=== PATIENT | female | born 1980 | race Caucasian/White ===

== ENCOUNTER 2017-11-30 22:07 | Emergency (ER) | payer BC ==
--- OUTSIDE RECORDS SUMMARY | 2017-11-30 22:09 | XMS REPORT | Continuity of Care Document ---
:1980 Author Organization Interface Problems Problem Status Onset Classification Date Comments Source Date Reported Acute upper 07/16/19 Diagnosis 07/15/2016 [facility] respiratory 17 infection Tobacco use 07/16/19 Diagnosis 07/15/2016 [facility] cessation 17 education Medications Medication Details Route Status Patient Ordering Order Source Instructions Provider Date Acetaminophen 300 acetaminophen Active [facility] MG / Codeine 300 mg-codeine Phosphate 30 MG 30 mg tablet Oral Tablet TAKE 1 TABLET BY MOUTH EVERY 6 HOURS NEEDED FOR PAIN 200 ACTUAT albuterol Active [facility] Albuterol 0.09 sulfate HFA 90 MG/ACTUAT Metered mcg/actuation Dose Inhaler aerosol inhaler Inhale 2 puffs every 4 hours by inhalation route. Amoxicillin 500 MG amoxicillin 500 Active [facility] Oral Capsule mg capsule TAKE 1 CAPSULE BY MOUTH 3 TIMES A DAY Azithromycin 250 azithromycin Active [facility] MG Oral Tablet 250 mg tablet TAKE 2 TABLETS (500 MG) BY ORAL ROUTE ONCE DAILY FOR 1 DAY THEN 1 TABLET (250 MG) BY ORAL ROUTE ONCE DAILY FOR 4 DAYS Ibuprofen 600 MG ibuprofen 600 Active [facility] Oral Tablet mg tablet TAKE 1 TABLET BY MOUTH EVERY 6 HOURS NEEDED FOR PAIN Dextromethorphan promethazine-DM Active [facility] Hydrobromide 3 6.25 mg-15 mg/5 MG/ML / mL syrup Take 5 Promethazine mL every 6 Hydrochloride 1.25 hours by oral MG/ML Oral route for 7 Solution days. tramadol tramadol 50 mg Active [facility] hydrochloride 50 tablet TAKE ONE MG Oral Tablet TABLET BY MOUTH EVERY SIX HOURS NEEDED FOR PAIN Allergies, Adverse Reactions, Alerts Substance Category Reaction Severity Reaction Status Date Comments Source type Reported NKDA Allergy to [facility] substance 7 Immunizations Immunization Date Given Site Status Last Updated Comments Source Results Order Results Value Reference Date Interpretation Comments Source Name Range Tibia Tibia Two-view right tibia/fibula, 4 radiographs. 12/28 - [facility] fibula fibula /2015 - James series series DX DX INDICATION: Right tibia and fibula injury this week with pain. Read by: Reinaldo Nielsen MD Dictated Date/time: 12/29/15 20:58 Electronically Signed by: Reinaldo Nielsen MD 12/29/15 21:00 FINAL REPORT FINDINGS: No priors for comparison. No acute fracture, dislocation, or osseous destruction is seen. Minimal enthesopathic change at Achilles insertion. No soft tissue abnormality identified. IMPRESSION: Negative. SL: SG-M Vital Signs Vital Sign Value Date Comments Source Diastolic (mm Hg) 62 07/15/2016 [facility] Height 63 07/15/2016 [facility] Systolic (mm Hg) 120 07/15/2016 [facility] Weight 205 07/15/2016 [facility] Encounters Location Location Encounter Encounter Reason Attending ADM DC Status Source Details Type Number For Provider Date Date Visit [place] - Babatunde Ashley, [id number] Babatunde Ashley 07/15 [facility] MANAGER SOLUTION: 1701 [id number] /2017 - [place] [id number], [address] [address] , Ph. Procedures Procedure Code Date Perfomer Comments Source
--- OUTSIDE RECORDS SUMMARY | 2017-11-30 22:09 | XMS REPORT | Encounter Summary ---
:1980 Author Reason for Visit Medical Complaint Instructions 1. Acute upper respiratory infection azithromycin 250 mg tablet promethazine-DM 6.25 mg-15 mg/5 mL syrup albuterol sulfate HFA 90 mcg/actuation aerosol inhaler 2. Tobacco use cessation education Discussion Note: None recorded.Patient educational handouts: No information available. Plan of Care Patient Instructions Take your prescribed medication and over the counter medications as directed. If you experience high fever over 101F, shortness of breath, persistent wheezing, severe pain, vomiting, or dizziness, please go to the ER. If you smoke, think about quitting. Quitting smoking has been shown to have immediate and long-term health benefits. Eat a heart healthy diet and exercise for at least 150 minutes per week. Follow up with your Primary Care Provider. Reminders Provider Appointments None recorded. Lab None recorded. Referral None recorded. Procedures None recorded. Surgeries None recorded. Imaging None recorded. Medications Name Start Date acetaminophen 300 mg-codeine 30 mg tablet TAKE 1 TABLET BY MOUTH EVERY 6 HOURS NEEDED FOR PAIN albuterol sulfate HFA 90 mcg/actuation aerosol inhaler Inhale 2 puffs every 4 hours by inhalation route. amoxicillin 500 mg capsule TAKE 1 CAPSULE BY MOUTH 3 TIMES A DAY azithromycin 250 mg tablet TAKE 2 TABLETS (500 MG) BY ORAL ROUTE ONCE DAILY FOR 1 DAY THEN 1 TABLET (250 MG) BY ORAL ROUTE ONCE DAILY FOR 4 DAYS ibuprofen 600 mg tablet TAKE 1 TABLET BY MOUTH EVERY 6 HOURS NEEDED FOR PAIN promethazine-DM 6.25 mg-15 mg/5 mL syrup Take 5 mL every 6 hours by oral route for 7 days. tramadol 50 mg tablet TAKE ONE TABLET BY MOUTH EVERY SIX HOURS NEEDED FOR PAIN Medications Administered None recorded. Vitals Height Weight BMI Blood Pressure 5 ft 3 in 205 lbs 36.3 120/62 Lab Results None recorded. Allergies Name Reaction Severity Onset NKDA Problems None recorded. Procedures None recorded. Vaccine List None recorded. Social History Smoking Status Current Every Day Smoker Past Encounters 07/15/2016 Acute Upper Respiratory Infection; Tobacco Use Cessation Education ABIDA Terrazas: [address] [place] [address], Ph. History of Present Illness Cough Reported By: Patient HPI: Location: chest. Quality: productive cough, sore throat, congested. Duration: 5 days. Onset/Timing: sudden. Context: no foreign travel, non-smoker, sick contact. Associated Symptoms: no shortness of breath, no wheezing, no sweats, no significant weight gain, no significant weight loss, no morning cough, no vomiting, no diarrhea, no rash, no nausea, chest pain, yellow sputum, sore throat, fever/chills, muscle aches, headache Review of Systems Basic Reported By: Patient Constitutional: Constitutional: no fever Eyes: Eyes: no eye complaints Oyap-Owoh-Tlzka-Throat: Ears: no ear complaints. Nose: nose/sinus problems. Mouth/Throat: no bleeding gums, no mouth complaints, no teeth problems, sore throat Cardiovascular: Cardiovascular: no chest pain, no shortness of breath, no known heart murmur Respiratory: Respiratory: no wheezing, no shortness of breath, cough Gastrointestinal: Gastrointestinal: no abdominal pain, no vomiting / diarrhea Genitourinary: Genitourinary: no urinary complaints, no discharge Musculoskeletal: Musculoskeletal: no muscle weakness, no arthralgias/joint pain, no back pain, muscle aches Skin: Skin: no abnormal / changing mole, no jaundice, no rashes Neurologic: Neurologic: no loss of consciousness, no weakness, no numbness, no seizures, no dizziness, headache Physical Exam Adult Basic Reported By: Patient Constitutional: General Appearance: healthy-appearing, well-nourished, well-developed. Level of Distress: NAD. Ambulation: ambulating normally Psychiatric: Mental Status: active and alert. Orientation: to time, to place, to person Eyes: Lids and Conjunctivae: non-injected, no discharge, no pallor. Pupils: PERRLA. Corneas: grossly intact. EOM: EOMI. Lens: clear. Sclerae: non-icteric. Vision: acuity grossly intact Xfg-Rjdl-Hcgrk-Throat: Ears: no lesions on external ear, no outer ear tenderness, EACs clear, TMs clear, TM bulging, middle ear fluid. Hearing: no hearing loss. Nose: no lesions on external nose, nares patent, no septal deviation, nasal passages clear, no sinus tenderness, no nasal discharge. Lips, Teeth, and Gums: no mouth or lip ulcers, no bleeding gums, normal dentition. Oropharynx: moist mucous membranes, no erythema, no exudates, tonsils not enlarged Neck: Neck: supple, trachea midline, no masses, FROM. Lymph Nodes: no cervical LAD, no supraclavicular LAD, no axillary LAD, no inguinal LAD. Thyroid: no enlargement, non-tender, no nodules Lungs: Respiratory effort: no dyspnea, no tachypnea, no use of accessory muscles, no intercostal retractions. Auscultation: expiratory wheezing, rhonchi Cardiovascular: Heart Auscultation: RRR, no murmurs Musculoskeletal:: Motor Strength and Tone: normal motor strength, normal tone. Joints, Bones, and Muscles: normal movement of all extremities, no bony abnormalities, no contractures, no malalignment, no tenderness. Extremities: no cyanosis, no edema, no varicosities, no palpable cord Neurologic: Gait and Station: normal gait, normal station. Cranial Nerves: grossly intact. Sensation: grossly intact Skin: Inspection and palpation: no rash, no lesions, no ulcer, no abnormal nevi, no induration, no nodules, good turgor, no jaundice. Nails: normal Back: Thoracolumbar Appearance: normal curvature
[2017-11-30] MEDS ORDERED: NA CHLORIDE 0.9% 100 ML IV ONE (22:48)
[2017-11-30] MEDS ORDERED: ONDANSETRON 4 MG/2 ML VIAL ONE (22:48)
[2017-11-30] MEDS ORDERED: NA CHLORIDE 0.9% 1,000 ML ONE (22:48)
[2017-11-30] MEDS ORDERED: PROMETHAZINE 25 MG/ML VIAL ONE (22:48)
[2017-11-30] MEDS ORDERED: FENTANYL CITR 100 MCG/2 ML ONE (22:48)
[2017-11-30 23:14] LABS: Absolute Monocytes 0.5 K/uL (0.1-1.3); Absolute Neutrophil 6.8 K/uL (1.8-8.0); Basophils % 0.5 % (0-1.3); Eosinophils % 0.9 % (0-4.4); Lymphocytes % 21.1 % (15.3-44.8); MCV 82.6 fL (80-100); MPV 10.1 fL (7.6-11.3); Monocytes % 5.4 % (3.3-12.3); RBC Red Blood Cell Count 4.85 M/uL (3.86-4.86)
[2017-11-30 23:27] LABS: ALT/SGPT 49 U/L (12-78); AST/SGOT 18 U/L (15-37); Albumin 3.6 g/dL (3.4-5.0); Alkaline Phosphatase 126 U/L (45-117); BUN Blood Urea Nitrogen 7 mg/dL (7-18); Bicarbonate 27 mmol/L (21-32); Bilirubin Direct < 0.1 mg/dL (0-0.2); Bilirubin Total 0.2 mg/dL (0.2-1.0); Glucose Level 109 mg/dL (74-106); Potassium 3.4 mmol/L (3.5-5.1); Protein, Total 8.1 g/dL (6.4-8.2); Sodium Level 139 mmol/L (136-145)
--- NOTE | 2017-12-01 | ER ---
Nurse's Notes [facility] Name: Fouzia Lamas Age: 37 yrs Sex: Female : 1980 Arrival Date: 11/30/2017 Time: 22:08 Bed 23 Private MD: Eugene Early S Diagnosis: Pain in hip;Vomiting, unspecified;Dizziness and giddiness Presentation: 11/30 22:19 Presenting complaint: Patient states: she is complaining of severe back pain, vomiting mg2 and lightheadedness today. she had back surgery last November 17 for fusion of iliac and sacral plate. she didn't take her pain medication today. Transition of care: patient was not received from another setting of care. Onset of symptoms was November 30, 2017. Risk Assessment: Do you want to hurt yourself or someone else? Patient reports no desire to harm self or others. Initial Sepsis Screen: Does the patient meet any 2 criteria? No. Patient's initial sepsis screen is negative. Does the patient have a suspected source of infection? No. Patient's initial sepsis screen is negative. Care prior to arrival: None. 22:19 Method Of Arrival: Wheelchair mg2 22:19 Acuity: DOLLY 3 mg2 Triage Assessment: 12/01 00:24 GI: Reports nausea, vomiting. mg2 00:25 General: Behavior is calm. 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 - Social history:: Smoking status: Patient/guardian denies using tobacco, Patient/guardian denies using alcohol, street drugs. - Ebola Screening: : No symptoms or risks identified at this time. Screenin:15 Abuse screen: Denies threats or abuse. Denies injuries from another. Nutritional mg2 screening: No deficits noted. Tuberculosis screening: No symptoms or risk factors identified. Fall Risk IV access (20 points). Gait- Weak (10 pts.). Assessment: 12/01 00:04 General: Appears in no apparent distress. comfortable. Pain: Complains of pain in mg2 buttocks and right lower back. Neuro: Level of Consciousness is awake, alert, obeys commands. Cardiovascular: Capillary refill < 3 seconds Patient's skin is warm and dry. Rhythm is regular. Respiratory: Airway is patent Respiratory effort is even, unlabored, Respiratory pattern is regular, symmetrical. GI: No signs and/or symptoms were reported involving the gastrointestinal system. Abdomen is flat, non-distended. : No signs and/or symptoms were reported regarding the genitourinary system. EENT: No signs and/or symptoms were reported regarding the EENT system. Derm: Skin is intact, Skin is pink, warm \T\ dry. normal. Musculoskeletal: Circulation, motion, and sensation intact. Reports pain in buttocks and right lower back. Vital Signs: 11/30 22:21 BP 115 / 50; Pulse 89; Resp 18; Pulse Ox 100% on R/A; Weight 93.44 kg; Height 5 ft. 3 mg2 in. (160.02 cm); Pain 8/10; 12/01 00:03 BP 114 / 74; Pulse 85; Resp 18; Temp 98.1; Pulse Ox 100% on R/A; Pain 2/10; mg2 08 22:21 Body Mass Index 36.49 (93.44 kg, 160.02 cm) mg2 ED Course: 11/30 22:08 Patient arrived in ED. am2 22:08 Eugene Early MD is Private Physician. am2 22:15 Kadi Malik FNP-C is [facility]. snw 22:15 Golden Pierce MD is Attending Physician. snw 22:18 Wing Ji RN is Primary Nurse. mg2 22:21 Triage completed. mg2 23:14 No provider procedures requiring assistance completed. Inserted saline lock: 22 gauge mg2 in right forearm, using aseptic technique. Blood collected. 12/01 00:05 Patient has correct armband on for positive identification. Bed in low position. mg2 00:24 IV discontinued, intact, bleeding controlled, No redness/swelling at site. Pressure mg2 dressing applied. 00:24 Arm band placed on. mg2 Administered Medications: 11/30 23:13 Drug: NS 0.9% 1000 ml Route: IV; Rate: 1 bolus; Site: right forearm; mg2 12/01 00:03 Follow up: Response: No adverse reaction; IV Status: Completed infusion mg2 11/30 23:13 Drug: Phenergan 12.5 mg Route: IVP; Site: right forearm; mg2 12/01 00:03 Follow up: Response: No adverse reaction; Marked relief of symptoms mg2 11/30 23:13 Drug: Zofran 4 mg Route: PO; mg2 12/01 00:02 Follow up: Response: No adverse reaction; Marked relief of symptoms mg2 11/30 23:14 Drug: fentaNYL (PF) 50 mcg Route: IVP; Site: right forearm; mg2 12/01 00:02 Follow up: Response: No adverse reaction; Pain is decreased mg2 Outcome: 11/30 23:59 Discharge ordered by MD. browne 12/01 00:25 Discharged to home via wheelchair, with family, with friend. mg2 Condition: stable Discharge instructions given to patient, family, friend, Instructed on discharge instructions, follow up and referral plans. medication usage, Demonstrated understanding of instructions, follow-up care, medications, Prescriptions given X 1. 00:25 Patient left the ED. mg2 Signatures: Kadi Malik, HAND SCRAPER-C HAND SCRAPER-Csnw Kmiberly Lal am2 Wing Ji, RN RN mg2
--- NOTE | 2017-12-01 | EDPHYS ---
Physician Documentation [facility] Name: Fouzia Lamas Age: 37 yrs Sex: Female : 1980 Arrival Date: 11/30/2017 Time: 22:08 Bed 23 Private MD: Eugene Early S ED Physician Golden Pierce HPI: 12/01 00:02 This 37 yrs old Female presents to ER via Wheelchair with complaints of snw Nausea/Vomiting, Dizziness. 00:02 The patient presents to the emergency department with nausea, vomiting. Onset: The snw symptoms/episode began/occurred suddenly, just prior to arrival. Possible causes: pain, meds, recent surgery. The symptoms are aggravated by movement. Associated signs and symptoms: Pertinent positives: nausea, vomiting, pain in hip. Severity of symptoms: At their worst the symptoms were moderate. It is unknown whether or not the patient has had similar symptoms in the past. The patient has been recently seen by a physician:. recent surgery, recent antibiotics (Bactrim), taking oxycodone for hip pain. 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 - Social history:: Smoking status: Patient/guardian denies using tobacco, Patient/guardian denies using alcohol, street drugs. - Ebola Screening: : No symptoms or risks identified at this time. ROS: 12/01 00:01 Constitutional: Negative for fever, chills, and weight loss, Eyes: Negative for injury, snw pain, redness, and discharge, ENT: Negative for injury, pain, and discharge, Neck: Negative for injury, pain, and swelling, Cardiovascular: Negative for chest pain, palpitations, and edema, Respiratory: Negative for shortness of breath, cough, wheezing, and pleuritic chest pain, Back: Negative for injury and pain, : Negative for injury, bleeding, discharge, and swelling, Skin: Negative for injury, rash, and discoloration. Abdomen/GI: Positive for nausea and vomiting. MS/extremity: Positive for pain, of the right lower back/hip. Neuro: Positive for dizziness. Exam: 11/30 22:42 Head/Face: Normocephalic, atraumatic. Eyes: Pupils equal round and reactive to light, snw extra-ocular motions intact. Lids and lashes normal. Conjunctiva and sclera are non-icteric and not injected. Cornea within normal limits. Periorbital areas with no swelling, redness, or edema. ENT: Nares patent. No nasal discharge, no septal abnormalities noted. Tympanic membranes are normal and external auditory canals are clear. Oropharynx with no redness, swelling, or masses, exudates, or evidence of obstruction, uvula midline. Mucous membranes moist. Neck: Trachea midline, no thyromegaly or masses palpated, and no cervical lymphadenopathy. Supple, full range of motion without nuchal rigidity, or vertebral point tenderness. No Meningismus. Chest/axilla: Normal chest wall appearance and motion. Nontender with no deformity. No lesions are appreciated. Cardiovascular: Regular rate and rhythm with a normal S1 and S2. No gallops, murmurs, or rubs. Normal PMI, no JVD. No pulse deficits. Respiratory: Lungs have equal breath sounds bilaterally, clear to auscultation and percussion. No rales, rhonchi or wheezes noted. No increased work of breathing, no retractions or nasal flaring. Abdomen/GI: Soft, non-tender, with normal bowel sounds. No distension or tympany. No guarding or rebound. No evidence of tenderness throughout. Back: No spinal tenderness. No costovertebral tenderness. Full range of motion. Skin: Warm, dry with normal turgor. Normal color with no rashes, no lesions, and no evidence of cellulitis. Neuro: Awake and alert, GCS 15, oriented to person, place, time, and situation. Cranial nerves II-XII grossly intact. Motor strength 5/5 in all extremities. Sensory grossly intact. Cerebellar exam normal. Normal gait. Psych: Awake, alert, with orientation to person, place and time. Behavior, mood, and affect are within normal limits. Constitutional: The patient appears alert, awake, uncomfortable. Musculoskeletal/extremity: Extremities: grossly normal except: noted in the right lower back: decreased ROM, tenderness, recent surgical fusion of sacroiliac joint, increased pain today and sudden onset of dizziness, hypersensitive to touch Vital Signs: 22:21 BP 115 / 50; Pulse 89; Resp 18; Pulse Ox 100% on R/A; Weight 93.44 kg; Height 5 ft. 3 mg2 in. (160.02 cm); Pain 8/10; 12/01 00:03 BP 114 / 74; Pulse 85; Resp 18; Temp 98.1; Pulse Ox 100% on R/A; Pain 2/10; mg2 08 22:21 Body Mass Index 36.49 (93.44 kg, 160.02 cm) mg2 MDM: 11/30 22:17 Patient medically screened. snw 12/01 00:00 Data reviewed: vital signs, nurses notes. Data interpreted: Pulse oximetry: on room air snw is 100 %. Interpretation: normal. Counseling: I had a detailed discussion with the patient and/or guardian regarding: the historical points, exam findings, and any diagnostic results supporting the discharge/admit diagnosis, lab results, the need for outpatient follow up, to return to the emergency department if symptoms worsen or persist or if there are any questions or concerns that arise at home. Special discussion: Based on the history and exam findings, there is no indication for further emergent testing or inpatient evaluation. I discussed with the patient/guardian the need to see the general surgeon for further evaluation of the symptoms. I discussed with the patient/guardian the need to see the primary care provider for further evaluation of the symptoms. 11/30 22:16 Order name: Basic Metabolic Panel; Complete Time: 23:28 snw 11/30 22:16 Order name: CBC with Diff; Complete Time: 23:28 snw 11/30 22:16 Order name: Hepatic Function; Complete Time: 23:28 snw 11/30 22:40 Order name: Blood Culture Adult (2) snw 11/30 22:40 Order name: Lactate; Complete Time: 23:57 snw 11/30 22:16 Order name: IV Saline Lock; Complete Time: 23:14 snw 11/30 22:31 Order name: EKG; Complete Time: 22:31 snw 11/30 22:16 Order name: Labs collected and sent; Complete Time: 23:14 snw 11/30 22:31 Order name: EKG - Nurse/Tech; Complete Time: 00:02 snw Administered Medications: 11/30 23:13 Drug: NS 0.9% 1000 ml Route: IV; Rate: 1 bolus; Site: right forearm; mg2 12/01 00:03 Follow up: Response: No adverse reaction; IV Status: Completed infusion mg2 11/30 23:13 Drug: Phenergan 12.5 mg Route: IVP; Site: right forearm; mg2 12/01 00:03 Follow up: Response: No adverse reaction; Marked relief of symptoms mg2 11/30 23:13 Drug: Zofran 4 mg Route: PO; mg2 12/01 00:02 Follow up: Response: No adverse reaction; Marked relief of symptoms mg2 11/30 23:14 Drug: fentaNYL (PF) 50 mcg Route: IVP; Site: right forearm; mg2 12/01 00:02 Follow up: Response: No adverse reaction; Pain is decreased mg2 Disposition: 03:35 Co-signature as Attending Physician, Golden Pierce MD. erica Disposition: 11/30/17 23:59 Discharged to Home. Impression: Pain in hip, Vomiting, unspecified, Dizziness and giddiness. - Condition is Stable. - Discharge Instructions: Dizziness, Nausea and Vomiting, Adult, Hip Pain, Rehydration, Adult. - Prescriptions for Antivert 25 mg Oral Tablet - take 1 tablet by ORAL route every 8 hours As needed; 20 tablet. - Medication Reconciliation Form, Thank You Letter, Antibiotic Education, Prescription Opioid Use form. - Follow up: Private Physician; When: Tomorrow; Reason: Recheck today's complaints, Continuance of care, Re-evaluation by your physician. Follow up: Emergency Department; When: As needed; Reason: Worsening of condition. Signatures: Dispatcher [employer] EDWV Golden Pierce MD MD pkl Kadi Malik, ZIPPER SEWING MACHINE OPERATOR-C ZIPPER SEWING MACHINE OPERATOR-Csnw Wing Ji RN RN mg2 Corrections: (The following items were deleted from the chart) 00:25 11/30 23:59 11/30/2017 23:59 Discharged to Home. Impression: Pain in hip; Vomiting, mg2 unspecified; Dizziness and giddiness. Condition is Stable. Forms are Medication Reconciliation Form, Thank You Letter, Antibiotic Education, Prescription Opioid Use. Follow up: Private Physician; When: Tomorrow; Reason: Recheck today's complaints, Continuance of care, Re-evaluation by your physician. Follow up: Emergency Department; When: As needed; Reason: Worsening of condition. snw
--- NOTE | 2017-12-01 07:33 | EKG ---
Test Date: 2017-11-30 Test Time: 23:58:40 Vaccine Manager: MG MEASUREMENT RESULTS: Intervals: Rate: 70 [place]: 154 QRSD: 74 QT: 400 QTc: 432 [place]: P: 15 [place]: 154 QRS: 8 T: -11 INTERPRETIVE STATEMENTS: Normal sinus rhythm with sinus arrhythmia Cannot rule out Anterior infarct, age undetermined Abnormal ECG No previous ECG available for comparison Electronically Signed On 12-01-17 07:32:51 CDT by Marcial Sanchez
== END 2017-12-01 00:25 | disposition home or self-care (01) ==
LOC: ER 22:07
DX: M25.559 Pain in unspecified hip (principal); R11.10 Vomiting, unspecified; R42 Dizziness and giddiness
CPT/HCPCS: 36415; 80048; 80076; 83605; 85025; 87040; 93005; 96361; 96374; 96375; 99284; J2405; J2550; J3010; J7030

== ENCOUNTER 2021-06-28 17:37 | Emergency (ER) | payer BC ==
--- OUTSIDE RECORDS SUMMARY | 2021-06-28 17:41 | XMS REPORT | Continuity of Care Document ---
:1980 Author Organization [facility] t Address [address] [place] [address] Care Team Providers Name Role Phone EBER BERMUDEZ Primary Care Physician Unavailable Tana Hall MD Attending Clinician Eber Bermudez MD Attending Clinician EBER BERMUDEZ Attending Clinician Unavailable Doctor Unassigned, Name Attending Clinician Unavailable FLY Attending Clinician Unavailable Cody Styles DO Attending Clinician TANA HALL Attending Clinician Unavailable TANA HALL Attending Clinician Unavailable OTTO Attending Clinician Unavailable JUANIS Attending Clinician Unavailable TANA HALL Admitting Clinician Unavailable Payers Payer Name Policy Type Policy Number Effective Date Expiration Date S ource Problems Condition Condition Condition Status Onset Resolution Last Treating Co mments Source Name Details Category Date Date Treatment Clinician Date Low back Low back Disease Active Unive rs pain of pain of 5-07 ity of over 3 over 3 00:00: [place] months 00 Medical duration duration Branch Obesity Obesity Disease Active Univers (BMI (BMI 6-06 ity of 30-39.9) 30-39.9) 00:00: [place] [facility] Abnormal Abnormal Disease Active Unive rs CT scan, CT scan, 6-26 ity of pelvis pelvis 00:00: [place] [facility] Syncope Syncope Disease Active Univers and and 1-26 ity of collapse collapse 00:00: [place] [facility] Sacroiliac Sacroiliac Problem Active U nivers joint pain joint pain it y of [place] Physici ans Greater Greater Problem Active Univers trochanter trochanter it y of ic ic [place] bursitis bursitis Physic i of right of right ans hip hip Tear of Tear of Problem Active Univers acetabular acetabular it y of labrum, labrum, [place] right, right, Physici subsequent subsequent an s encounter encounter Primary Primary Problem Active Univers osteoarthr osteoarthr it y of itis of itis of [place] both hips both hips Phys ici ans Right hip Right hip Problem Active Uni vers pain pain ity of [place] Physici ans Allergies, Adverse Reactions, Alerts Allergy Allergy Status Severity Reaction(s) Onset Inactive Treating Comm ents Source Name Type Date Date Clinician NO KNOWN Drug Active Univers ALLERGIE Class ity of S [facility] Family History Family Member Diagnosis Comments Start Date Stop Date Source Father Family history of Univers ity of [place] essential hypertension Ph ysicians Father Family history of Univers ity of [place] diabetes mellitus Physici ans Mother Family history of Univers [facility]y of [place] valvular heart disease Ph ysicians Social History Social Habit Start Date Stop Date Quantity Comments Source History of tobacco Cigarette Smoker University of use [facility] Exposure to Not sure [facility] SARS-CoV-2 (event) [facility] Cigarettes smoked 2020-02-04 2020-02-04 Univers ity of current (pack per 00:00:00 00:00:00 ) - Reported Branch Cigarette 2020-02-04 2020-02-04 University of pack-years 00:00:00 00:00:00 [facility] Tobacco use and 2020-02-04 2020-02-04 Never used Universit y of exposure 00:00:00 00:00:00 [facility] Alcohol intake 2020-02-04 2020-02-04 Current drinker Unive rsity of 00:00:00 00:00:00 of alcohol [facility] (finding) [place] Alcohol Comment 2017-09-29 2017-09-29 Rare occasions Unive rsity of 00:00:00 00:00:00 [facility] Sex Assigned At [birth year] Universit y of 00:00:00 00:00:00 [facility] Smoking Status Start Date Stop Date Source Ex-smoker (finding) [place] [facility] Physicians Current every day smoker 2020-02-04 00:00:00 Uni versity of [facility] Medications Ordered Filled Start Stop Current Ordering Indication Dosage Frequency Signature Comments Components Source Medication Medication Date Date Medication? Clinician (SIG) Name Name amibobiptrocael Yes 25mg Take 1 Univ ers ne 25 mg 9-12 tablet by ity of tablet 00:00: mouth at [place] 00 bedtime. Medical Branch amitriptyli Yes 25mg Take 1 Univ ers ne 25 mg 9-12 tablet by ity of tablet 00:00: mouth at [place] 00 bedtime. Medical Branch DULoxetine Yes 40mg Take 40 mg U nivers 20 mg 7-14 by mouth ity of capsule 18:14: at [place] 14 bedtime. Medical Branch cyclobenzap Yes 20mg Take 20 mg Univers rine 10 mg 7-14 by mouth ity o f tablet 18:14: at [place] 14 bedtime. Medical Branch oxyCODONE-a Yes 1{tbl} Take 1 Un manuel cetaminophe 7-14 tablet by ity of n 5-325 mg 18:14: mouth [place] per tablet 14 every 6 Medica l (six) Branch hours as needed. lemborexant Yes 5mg Take 5 mg U nivers (DAYVIGO) 5 7-14 by mouth ity of mg Tab 18:14: at bedtime [place] 14 as needed. Medical Branch DULoxetine Yes 40mg Take 40 mg U nivers 20 mg 7-14 by mouth ity of capsule 18:14: at [place] 14 bedtime. Medical Branch cyclobenzap Yes 20mg Take 20 mg Univers rine 10 mg 7-14 by mouth ity o f tablet 18:14: at [place] 14 bedtime. Medical Branch oxyCODONE-a Yes 1{tbl} Take 1 Un manuel cetaminophe 7-14 tablet by ity of n 5-325 mg 18:14: mouth [place] per tablet 14 every 6 Medica l (six) Branch hours as needed. lemborexant Yes 5mg Take 5 mg U nivers (DAYVIGO) 5 7-14 by mouth ity of mg Tab 18:14: at bedtime [place] 14 as needed. Medical Branch DULoxetine Yes 40mg Take 40 mg U nivers 20 mg 7-14 by mouth ity of capsule 18:14: at [place] 14 bedtime. Medical Branch cyclobenzap Yes 20mg Take 20 mg Univers rine 10 mg 7-14 by mouth ity o f tablet 18:14: at [place] 14 bedtime. Medical Branch oxyCODONE-a Yes 1{tbl} Take 1 Un manuel cetaminophe 7-14 tablet by ity of n 5-325 mg 18:14: mouth [place] per tablet 14 every 6 Medica l (six) Branch hours as needed. lemborexant Yes 5mg Take 5 mg U nivers (DAYVIGO) 5 7-14 by mouth ity of mg Tab 18:14: at bedtime [place] 14 as needed. Medical Branch DULoxetine Yes 40mg Take 40 mg U nivers 20 mg 7-14 by mouth ity of capsule 18:14: at [place] 14 bedtime. Medical Branch cyclobenzap Yes 20mg Take 20 mg Univers rine 10 mg 7-14 by mouth ity o f tablet 18:14: at [place] 14 bedtime. Medical Branch oxyCODONE-a Yes 1{tbl} Take 1 Un manuel cetaminophe 7-14 tablet by ity of n 5-325 mg 18:14: mouth [place] per tablet 14 every 6 Medica l (six) Branch hours as needed. lemborexant Yes 5mg Take 5 mg U nivers (DAYVIGO) 5 7-14 by mouth ity of mg Tab 18:14: at bedtime [place] 14 as needed. Medical Branch traZODone 2020- No 150mg Take 150 Un manuel 150 mg 7-14 07-14 mg by ity of tablet 18:14: 00:00 mouth at [place] 13 :00 bedtime. Medical Branch traZODone 2020- No 150mg Take 150 Un manuel 150 mg 7-14 07-14 mg by ity of tablet 18:14: 00:00 mouth at [place] 13 :00 bedtime. Medical Branch tapentadol 2020- No 50mg Take 50 mg Univers 50 mg 7-14 07-14 by mouth ity of tablet 18:14: 00:00 daily. [place] 10 :00 Medical Branch tapentadol 2020- No 50mg Take 50 mg Univers 50 mg 7-14 -14 by mouth ity of tablet 18:14: 00:00 daily. [place] 10 :00 Medical Branch tapentadol 2020- No Take by Un manuel (NUCYNTA) 11-08-14 mouth 2 ity of 50 mg 18:14: 00:00 (two) [place] tablet 07 :00 times Medical daily. Branch tapentadol 2020- No Take by Un manuel (NUCYNTA) 11-08-14 mouth 2 ity of 50 mg 18:14: 00:00 (two) [place] tablet 07 :00 times Medical daily. Branch pregabalin 2020- No 75mg Take 75 mg Univers 75 mg 11-08- by mouth 2 ity of capsule 18:14: 00:00 (two) [place] 01 :00 times Medical daily. Branch pregabalin 2020- No 75mg Take 75 mg Univers 75 mg 11-08 by mouth 2 ity of capsule 18:14: 00:00 (two) [place] 01 :00 times Medical daily. Branch gabapentin 2020- No 600mg Take 600 U nivers enacarbil 11-08 07-14 mg by ity of (HORIZANT) 18:13: 00:00 mouth 2 [place] 600 mg TbSR 48 :00 (two) Medical times [place] daily. gabapentin 2020- No 600mg Take 600 U nivers enacarbil 11-08 07-14 mg by ity of (HORIZANT) 18:13: 00:00 mouth 2 [place] 600 mg TbSR 48 :00 (two) Medical times [place] daily. amitriptyli 2020- Yes 25mg Take 1 Univ ers ne 25 mg 7-05 tablet by ity of tablet 00:00: mouth at [place] [address] bedtime. Medical Branch amitriptyli 2020-0 Yes 25mg Take 1 Univ ers ne 25 mg 7-05 tablet by ity of tablet 00:00: mouth at [place] [address] bedtime. Medical Branch amitriptyli 2020-0 Yes 25mg Take 1 Univ ers ne 25 mg 7-05 tablet by ity of tablet 00:00: mouth at [place] [address] bedtime. Medical Branch amitriptyli 2020-0 Yes 25mg Take 1 Univ ers ne 25 mg 7-05 tablet by ity of tablet 00:00: mouth at [place] 00 bedtime. Medical Branch amitriptyli 2020- No 25mg Take 1 Uni vers ne 25 mg 7-05 09-12 tablet by ity o f tablet 00:00: 00:00 mouth at [place] 00 :00 bedtime. Medical Branch amitriptyli 2020- No 25mg Take 1 Uni vers ne 25 mg 7-05 09-12 tablet by ity o f tablet 00:00: 00:00 mouth at [place] 00 :00 bedtime. Medical Branch amitriptyli Yes 25mg Take 1 Univ ers ne 25 mg 5-11 tablet by ity of tablet 00:00: mouth at [place] 00 bedtime. Medical Branch amitriptyli 2020- No 25mg Take 1 Uni vers ne 25 mg 5-11 07-05 tablet by ity o f tablet 00:00: 00:00 mouth at [place] 00 :00 bedtime. Medical Branch amitriptyli Yes 25mg Take 1 Univ ers ne 25 mg 3-26 tablet by ity of tablet 00:00: mouth at [place] 00 bedtime. Medical Branch amitriptyli 2020- No 25mg Take 1 Uni vers ne 25 mg 3-26 05-11 tablet by ity o f tablet 00:00: 00:00 mouth at [place] 00 :00 bedtime. Medical Branch divalproex 2020-1 Yes [id number] 125mg Take 1 Univers 125 mg EC 1-24 9105 tablet by ity o f tablet 00:00: mouth [place] 00 every 12 Medical (twelve) Branch hours. divalproex 2020-1 Yes [id number] 125mg Take 1 Univers 125 mg EC 1-24 9105 tablet by ity o f tablet 00:00: mouth [place] 00 every 12 Medical (twelve) Branch hours. divalproex 2020-1 Yes [id number] 125mg Take 1 Univers 125 mg EC 1-24 9105 tablet by ity o f tablet 00:00: mouth [place] 00 every 12 Medical (twelve) Branch hours. divalproex 2020-1 Yes [id number] 125mg Take 1 Univers 125 mg EC 1-24 9105 tablet by ity o f tablet 00:00: mouth [place] 00 every 12 Medical (twelve) Branch hours. divalproex 2020-1 Yes [id number] 125mg Take 1 Univers 125 mg EC 1-24 9105 tablet by ity o f tablet 00:00: mouth [place] 00 every 12 Medical (twelve) Branch hours. divalproex 2020- Yes [id number] 125mg Take 1 Univers 125 mg EC 1-24 9105 tablet by ity o f tablet 00:00: mouth [place] 00 every 12 Medical (twelve) Branch hours. divalproex 2020- Yes [id number] 125mg Take 1 Univers 125 mg EC 1-24 9105 tablet by ity o f tablet 00:00: mouth [place] 00 every 12 Medical (twelve) Branch hours. divalproex 2019-2020- No [id number] 125mg Take 1 Univers 125 mg EC 1-24 -14 9105 tablet by ity of tablet 00:00: 00:00 mouth [place] 00 :00 every 12 Medical (twelve) Branch hours. divalproex 2019-2020- No [id number] 125mg Take 1 Univers 125 mg EC 1-24 -14 9105 tablet by ity of tablet 00:00: 00:00 mouth [place] 00 :00 every 12 Medical (twelve) Branch hours. divalproex 2020- Yes [id number] 125mg Take 1 Univers 125 mg EC 0-09 9105 tablet by ity o f tablet 00:00: mouth [place] 00 every 12 Medical (twelve) Branch hours. divalproex 2020- Yes [id number] 125mg Take 1 Univers 125 mg EC 0-09 9105 tablet by ity o f tablet 00:00: mouth [place] 00 every 12 Medical (twelve) Branch hours. divalproex 2020- Yes [id number] 125mg Take 1 Univers 125 mg EC 0-09 9105 tablet by ity o f tablet 00:00: mouth [place] 00 every 12 Medical (twelve) Branch hours. divalproex 2019- 2020- No [id number] 125mg Take 1 Univers 125 mg EC 0-09 -24 9105 tablet by ity of tablet 00:00: 00:00 mouth [place] 00 :00 every 12 Medical (twelve) Branch hours. erenumab-ao 2020- Yes 140mg inject 140 Univers oe (AIMOVIG 8-18 mg under ity of AUTOINJECTO 00:00: the skin [place] R) 140 00 once every Medical mg/mL AtIn month. Branch erenumab-ao 2019- No 140mg inject 140 Univers oe (AIMOVIG 8-18 10-09 mg under ity of AUTOINJECTO 00:00: 00:00 the skin [place] R) 140 00 :00 once every Medical mg/mL AtIn month. Branch erenumab-ao 2020- No 140mg inject 140 Univers oe (AIMOVIG 8-18 10-09 mg under ity of AUTOINJECTO 00:00: 00:00 the skin [place] R) 140 00 :00 once every Medical mg/mL AtIn month. Branch erenumab-ao 2019-0 Yes 140mg inject 140 Univers oe (AIMOVIG 7-06 mg under ity of AUTOINJECTO 00:00: the skin [place] R) 140 00 once every Medical mg/mL AtIn month. [place] erenumab-ao Yes 140mg inject 140 Univers oe (AIMOVIG 7-06 mg under ity of AUTOINJECTO 00:00: the skin [place] R) 140 00 once every Medical mg/mL AtIn month. Branch erenumab-ao 2019- No 140mg inject 140 Univers oe (AIMOVIG 7-06 08-18 mg under ity of AUTOINJECTO 00:00: 00:00 the skin [place] R) 140 00 :00 once every Medical mg/mL AtIn month. Branch topiramate 2020-0 Yes [id number] 100mg Take 1 Univers 100 mg 5-15 9105 tablet by ity of tablet 00:00: mouth 2 00 (two) Medical times Branch daily. topiramate 2020-0 Yes [id number] 100mg Take 1 Univers 100 mg 5-15 9105 tablet by ity of tablet 00:00: mouth 2 [place] 00 (two) Medical times Branch daily. topiramate 2020-0 Yes [id number] 100mg Take 1 Univers 100 mg 5-15 9105 tablet by ity of tablet 00:00: mouth 2 [place] 00 (two) Medical times Branch daily. topiramate 2020-0 Yes [id number] 100mg Take 1 Univers 100 mg 5-15 9105 tablet by ity of tablet 00:00: mouth 2 00 (two) Medical times Branch daily. topiramate 2020-0 Yes [id number] 100mg Take 1 Univers 100 mg 5-15 9105 tablet by ity of tablet 00:00: mouth 2 [place] 00 (two) Medical times Branch daily. topiramate 2020-0 Yes [id number] 100mg Take 1 Univers 100 mg 5-15 9105 tablet by ity of tablet 00:00: mouth 2 [place] 00 (two) Medical times Branch daily. topiramate 2020-0 Yes [id number] 100mg Take 1 Univers 100 mg 5-15 9105 tablet by ity of tablet 00:00: mouth 2 [place] 00 (two) Medical times Branch daily. topiramate 2020-0 2020- No [id number] 100mg Take 1 Univers 100 mg 5-15 10-09 9105 tablet by ity of tablet 00:00: 00:00 mouth 2 [place] 00 :00 (two) Medical times Branch daily. topiramate 2020-0 2020- No [id number] 100mg Take 1 Univers 100 mg 5-15 10-09 9105 tablet by ity of tablet 00:00: 00:00 mouth 2 [place] 00 :00 (two) Medical times Branch daily. topiramate 2020-0 Yes [id number] 50mg Take 1 Univers 50 mg 4-22 9105 tablet by ity of tablet 00:00: mouth 2 [place] 00 (two) Medical times Branch daily. topiramate 2020-0 Yes [id number] 50mg Take 1 Univers 50 mg 4-22 9105 tablet by ity of tablet 00:00: mouth 2 [place] 00 (two) Medical times Branch daily. topiramate 2020-0 2020- No [id number] 50mg Take 1 Univers 50 mg 4-22 05-15 9105 tablet by ity of tablet 00:00: 00:00 mouth 2 [place] 00 :00 (two) Medical times Branch daily. topiramate 2020-0 2020- No [id number] 50mg Take 1 Univers 50 mg 4-22 05-15 9105 tablet by ity of tablet 00:00: 00:00 mouth 2 [place] 00 :00 (two) Medical times Branch daily. topiramate 2020-0 2020- No [id number] 50mg Take 1 Univers 50 mg 4-22 05-15 9105 tablet by ity of tablet 00:00: 00:00 mouth 2 [place] 00 :00 (two) Medical times Branch daily. topiramate 2020-0 Yes [id number] 50mg Take 1 Univers 50 mg 3-02 9105 tablet by ity of tablet 00:00: mouth 2 [place] 00 (two) Medical times Branch daily. topiramate Yes [id number] 50mg Take 1 Univers 50 mg 3- 9105 tablet by ity of tablet 00:00: mouth 2 [place] 00 (two) Medical times Branch daily. topiramate 2020- No [id number] 50mg Take 1 Univers 50 mg 3-08-17 9105 tablet by ity of tablet 00:00: 00:00 mouth 2 [place] 00 :00 (two) Medical times Branch daily. topiramate 2018-04 2020- No [id number] 25mg Take 1 Univers 25 mg 206-27 9105 tablet by ity of tablet 00:00: 00:00 mouth 2 [place] 00 :00 (two) Medical times Branch daily. topiramate 2018-04- No [id number] 25mg Take 1 Univers 25 mg 05-30 9105 tablet by ity of tablet 00:00: 00:00 mouth 2 [place] 00 :00 (two) Medical times Branch daily. traZODone 2018-04 Yes 150mg Take 150 Uni vers 150 mg 1-04 mg by ity of tablet 21:54: mouth at [place] [address] bedtime. Medical Branch pregabalin 2018-04 Yes 75mg Take 75 mg U nivers 75 mg 1-04 by mouth 2 ity of capsule 21:54: (two) [place] 45 times Medical daily. Branch tapentadol 2018-04 Yes Take by Uni vers (NUCYNTA) 1-04 mouth 2 ity of 50 mg 21:54: (two) [place] tablet 45 times Medical daily. Branch traZODone 2018-04 Yes 150mg Take 150 Uni vers 150 mg 1-04 mg by ity of tablet 21:54: mouth at [place] 45 bedtime. Medical Branch pregabalin 2018-04 Yes 75mg Take 75 mg U nivers 75 mg 1-04 by mouth 2 ity of capsule 21:54: (two) [place] 45 times Medical daily. Branch tapentadol 2018-04 Yes Take by Uni vers (NUCYNTA) 1-04 mouth 2 ity of 50 mg 21:54: (two) [place] tablet 45 times Medical daily. Branch traZODone 2018-04 Yes 150mg Take 150 Uni vers 150 mg 1-04 mg by ity of tablet 21:54: mouth at [place] 45 bedtime. Medical Branch pregabalin 2018-04 Yes 75mg Take 75 mg U nivers 75 mg 1-04 by mouth 2 ity of capsule 21:54: (two) [place] 45 times Medical daily. Branch tapentadol 2018-04 Yes Take by Uni vers (NUCYNTA) 1-04 mouth 2 ity of 50 mg 21:54: (two) [place] tablet 45 times Medical daily. Branch traZODone 2018-04 Yes 150mg Take 150 Uni vers 150 mg 1-04 mg by ity of tablet 21:54: mouth at [place] 45 bedtime. Medical Branch pregabalin 2018-04 Yes 75mg Take 75 mg U nivers 75 mg 1-04 by mouth 2 ity of capsule 21:54: (two) [place] 45 times Medical daily. Branch tapentadol 2018-04 Yes Take by Uni vers (NUCYNTA) 1-04 mouth 2 ity of 50 mg 21:54: (two) [place] tablet 45 times Medical daily. Branch traZODone 2018-04 Yes 150mg Take 150 Uni vers 150 mg 1-04 mg by ity of tablet 21:54: mouth at [place] 45 bedtime. Medical Branch pregabalin 2018-04 Yes 75mg Take 75 mg U nivers 75 mg 1-04 by mouth 2 ity of capsule 21:54: (two) [place] 45 times Medical daily. Branch tapentadol 2018-04 Yes Take by Uni vers (NUCYNTA) 1-04 mouth 2 ity of 50 mg 21:54: (two) [place] tablet 45 times Medical daily. Branch traZODone 2018-04 Yes 150mg Take 150 Uni vers 150 mg 1-04 mg by ity of tablet 21:54: mouth at [place] 45 bedtime. Medical Branch pregabalin 2018-04 Yes 75mg Take 75 mg U nivers 75 mg 1-04 by mouth 2 ity of capsule 21:54: (two) [place] 45 times Medical daily. Branch tapentadol 2018-04 Yes Take by Uni vers (NUCYNTA) 1-04 mouth 2 ity of 50 mg 21:54: (two) [place] tablet 45 times Medical daily. Branch traZODone 2018-04 Yes 150mg Take 150 Uni vers 150 mg 1-04 mg by ity of tablet 21:54: mouth at [place] 45 bedtime. Medical Branch pregabalin 2018-04 Yes 75mg Take 75 mg U nivers 75 mg 1-04 by mouth 2 ity of capsule 21:54: (two) [place] 45 times Medical daily. Branch tapentadol 2018-04 Yes Take by Uni vers (NUCYNTA) 1-04 mouth 2 ity of 50 mg 21:54: (two) [place] tablet 45 times Medical daily. Branch traZODone 2018-04 Yes 150mg Take 150 Uni vers 150 mg 1-04 mg by ity of tablet 21:54: mouth at [place] 45 bedtime. Medical Branch pregabalin 2018-04 Yes 75mg Take 75 mg U nivers 75 mg 1-04 by mouth 2 ity of capsule 21:54: (two) [place] 45 times Medical daily. Branch tapentadol 2018-04 Yes Take by Uni vers (NUCYNTA) 1-04 mouth 2 ity of 50 mg 21:54: (two) [place] tablet 45 times Medical daily. Branch traZODone 2018-04 Yes 150mg Take 150 Uni vers 150 mg 1-04 mg by ity of tablet 21:54: mouth at [place] 45 bedtime. Medical Branch pregabalin 2018-04 Yes 75mg Take 75 mg U nivers 75 mg 1-04 by mouth 2 ity of capsule 21:54: (two) [place] 45 times Medical daily. Branch tapentadol 2018-04 Yes Take by Uni vers (NUCYNTA) 1-04 mouth 2 ity of 50 mg 21:54: (two) [place] tablet 45 times Medical daily. Branch traZODone 2018-04 Yes 150mg Take 150 Uni vers 150 mg 1-04 mg by ity of tablet 21:54: mouth at [place] 45 bedtime. Medical Branch pregabalin 2018-04 Yes 75mg Take 75 mg U nivers 75 mg 1-04 by mouth 2 ity of capsule 21:54: (two) [place] 45 times Medical daily. Branch tapentadol 2018-04 Yes Take by Uni vers (NUCYNTA) 1-04 mouth 2 ity of 50 mg 21:54: (two) [place] tablet 45 times Medical daily. Branch traZODone 2018-04 Yes 150mg Take 150 Uni vers 150 mg 1-04 mg by ity of tablet 21:54: mouth at [place] 45 bedtime. Medical Branch pregabalin 2018-04 Yes 75mg Take 75 mg U nivers 75 mg 1-04 by mouth 2 ity of capsule 21:54: (two) [place] 45 times Medical daily. Branch tapentadol 2018-04 Yes Take by Uni vers (NUCYNTA) 1-04 mouth 2 ity of 50 mg 21:54: (two) [place] tablet 45 times Medical daily. Branch traZODone 2018-04 Yes 150mg Take 150 Uni vers 150 mg 1-04 mg by ity of tablet 21:54: mouth at [place] 45 bedtime. Medical Branch pregabalin 2018- Yes 75mg Take 75 mg U nivers 75 mg 1-04 by mouth 2 ity of capsule 21:54: (two) [place] 45 times Medical daily. Branch tapentadol 2018-04 Yes Take by Uni vers (NUCYNTA) 1-04 mouth 2 ity of 50 mg 21:54: (two) [place] tablet 45 times Medical daily. Branch traZODone 2018-04 Yes 150mg Take 150 Uni vers 150 mg 1-04 mg by ity of tablet 21:54: mouth at [place] 45 bedtime. Medical Branch pregabalin 2018-04 Yes 75mg Take 75 mg U nivers 75 mg 1-04 by mouth 2 ity of capsule 21:54: (two) [place] 45 times Medical daily. Branch tapentadol 2018-04 Yes Take by Uni vers (NUCYNTA) 1-04 mouth 2 ity of 50 mg 21:54: (two) [place] tablet 45 times Medical daily. Branch traZODone 2018-04 Yes 150mg Take 150 Uni vers 150 mg 1-04 mg by ity of tablet 21:54: mouth at [place] 45 bedtime. Medical Branch pregabalin 2018-04 Yes 75mg Take 75 mg U nivers 75 mg 1-04 by mouth 2 ity of capsule 21:54: (two) [place] 45 times Medical daily. Branch tapentadol 2018-04 Yes Take by Uni vers (NUCYNTA) 1-04 mouth 2 ity of 50 mg 21:54: (two) [place] tablet 45 times Medical daily. Branch traZODone 2018-04 Yes 150mg Take 150 Uni vers 150 mg 1-04 mg by ity of tablet 21:54: mouth at [place] 45 bedtime. Medical Branch pregabalin 2018-04 Yes 75mg Take 75 mg U nivers 75 mg 1-04 by mouth 2 ity of capsule 21:54: (two) [place] 45 times Medical daily. Branch tapentadol 2018-04 Yes Take by Uni vers (NUCYNTA) 1-04 mouth 2 ity of 50 mg 21:54: (two) [place] tablet 45 times Medical daily. Branch traZODone 2018-04 Yes 150mg Take 150 Uni vers 150 mg 1-04 mg by ity of tablet 21:54: mouth at [place] 45 bedtime. Medical Branch pregabalin 2018-04 Yes 75mg Take 75 mg U nivers 75 mg 1-04 by mouth 2 ity of capsule 21:54: (two) [place] 45 times Medical daily. Branch tapentadol 2018-04 Yes Take by Uni vers (NUCYNTA) 1-04 mouth 2 ity of 50 mg 21:54: (two) [place] tablet 45 times Medical daily. Branch traZODone 2018-04 Yes 150mg Take 150 Uni vers 150 mg 1-04 mg by ity of tablet 21:54: mouth at [place] 45 bedtime. Medical Branch pregabalin 2018-04 Yes 75mg Take 75 mg U nivers 75 mg 1-04 by mouth 2 ity of capsule 21:54: (two) [place] 45 times Medical daily. Branch tapentadol 2018-04 Yes Take by Uni vers (NUCYNTA) 1-04 mouth 2 ity of 50 mg 21:54: (two) [place] tablet 45 times Medical daily. Branch traZODone 2018-04 Yes 150mg Take 150 Uni vers 150 mg 1-04 mg by ity of tablet 21:54: mouth at [place] 45 bedtime. Medical Branch pregabalin 2018-04 Yes 75mg Take 75 mg U nivers 75 mg 1-04 by mouth 2 ity of capsule 21:54: (two) [place] 45 times Medical daily. Branch tapentadol 2018-04 Yes Take by Uni vers (NUCYNTA) 1-04 mouth 2 ity of 50 mg 21:54: (two) [place] tablet 45 times Medical daily. Branch traZODone 2018-04 Yes 150mg Take 150 Uni vers 150 mg 1-04 mg by ity of tablet 21:54: mouth at [place] 45 bedtime. Medical Branch pregabalin 2018-04 Yes 75mg Take 75 mg U nivers 75 mg 1-04 by mouth 2 ity of capsule 21:54: (two) [place] 45 times Medical daily. Branch tapentadol 2018-04 Yes Take by Uni vers (NUCYNTA) 1-04 mouth 2 ity of 50 mg 21:54: (two) [place] tablet 45 times Medical daily. Branch traZODone 2018-04 Yes 150mg Take 150 Uni vers 150 mg 1-04 mg by ity of tablet 21:54: mouth at [place] 45 bedtime. Medical Branch pregabalin 2018-04 Yes 75mg Take 75 mg U nivers 75 mg 1-04 by mouth 2 ity of capsule 21:54: (two) [place] 45 times Medical daily. Branch tapentadol 2018-04 Yes Take by Uni vers (NUCYNTA) 1-04 mouth 2 ity of 50 mg 21:54: (two) [place] tablet 45 times Medical daily. Branch traZODone 2018-04 Yes 150mg Take 150 Uni vers 150 mg 1-04 mg by ity of tablet 21:54: mouth at [place] 45 bedtime. Medical Branch pregabalin 2018-04 Yes 75mg Take 75 mg U nivers 75 mg 1-04 by mouth 2 ity of capsule 21:54: (two) [place] 45 times Medical daily. Branch tapentadol 2018-04 Yes Take by Uni vers (NUCYNTA) 1-04 mouth 2 ity of 50 mg 21:54: (two) [place] tablet 45 times Medical daily. Branch indomethaci 2018-04 Yes [id number] 25mg Take 1 Univers n 25 mg 1-04 capsule by ity of capsule 00:00: mouth 3 [place] 00 (three) Medical times Branch daily with meals. indomethaci 2018-04 Yes [id number] 25mg Take 1 Univers n 25 mg 1-04 capsule by ity of capsule 00:00: mouth 3 [place] 00 (three) Medical times Branch daily with meals. indomethaci 2018-04 Yes [id number] 25mg Take 1 Univers n 25 mg 1-04 capsule by ity of capsule 00:00: mouth 3 [place] 00 (three) Medical times Branch daily with meals. indomethaci 2018-04 Yes [id number] 25mg Take 1 Univers n 25 mg 1-04 capsule by ity of capsule 00:00: mouth 3 [place] 00 (three) Medical times Branch daily with meals. indomethaci 2018-04 Yes [id number] 25mg Take 1 Univers n 25 mg 1-04 capsule by ity of capsule 00:00: mouth 3 [place] 00 (three) Medical times Branch daily with meals. indomethaci 2018-04 Yes [id number] 25mg Take 1 Univers n 25 mg 1-04 capsule by ity of capsule 00:00: mouth (three) Medical times Branch daily with meals. indomethaci 2018-04 Yes [id number] 25mg Take 1 Univers n 25 mg 1-04 capsule by ity of capsule 00:00: mouth (three) Medical times Branch daily with meals. indomethaci 2018-04 Yes [id number] 25mg Take 1 Univers n 25 mg 1-04 capsule by ity of capsule 00:00: mouth 3 (three) Medical times Branch daily with meals. indomethaci 2018-04 Yes [id number] 25mg Take 1 Univers n 25 mg 1-04 capsule by ity of capsule 00:00: mouth (three) Medical times Branch daily with meals. indomethaci 2018-04 Yes [id number] 25mg Take 1 Univers n 25 mg 1-04 capsule by ity of capsule 00:00: mouth (three) Medical times Branch daily with meals. indomethaci 2018-04 Yes [id number] 25mg Take 1 Univers n 25 mg 1-04 capsule by ity of capsule 00:00: mouth (three) Medical times Branch daily with meals. indomethaci 2018-04 Yes [id number] 25mg Take 1 Univers n 25 mg 1-04 capsule by ity of capsule 00:00: mouth (three) Medical times Branch daily with meals. indomethaci 2018-04 Yes [id number] 25mg Take 1 Univers n 25 mg 1-04 capsule by ity of capsule 00:00: mouth (three) Medical times Branch daily with meals. indomethaci 2018-04 Yes [id number] 25mg Take 1 Univers n 25 mg 1-04 capsule by ity of capsule 00:00: mouth (three) Medical times Branch daily with meals. indomethaci 2018-04 Yes [id number] 25mg Take 1 Univers n 25 mg 1-04 capsule by ity of capsule 00:00: mouth (three) Medical times Branch daily with meals. indomethaci 2018- Yes [id number] 25mg Take 1 Univers n 25 mg 1-04 capsule by ity of capsule 00:00: mouth 3 (three) Medical times Branch daily with meals. indomethaci 2018- Yes [id number] 25mg Take 1 Univers n 25 mg 1-04 capsule by ity of capsule 00:00: mouth (three) Medical times Branch daily with meals. indomethaci 2018-04 Yes [id number] 25mg Take 1 Univers n 25 mg 1-04 capsule by ity of capsule 00:00: mouth 3 [place] 00 (three) Medical times Branch daily with meals. indomethaci 2018-04 Yes [id number] 25mg Take 1 Univers n 25 mg 1-04 capsule by ity of capsule 00:00: mouth 3 [place] 00 (three) Medical times Branch daily with meals. indomethaci 2018-04 Yes [id number] 25mg Take 1 Univers n 25 mg 1-04 capsule by ity of capsule 00:00: mouth 3 [place] 00 (three) Medical times Branch daily with meals. indomethaci 2018-04 Yes [id number] 25mg Take 1 Univers n 25 mg 1-04 capsule by ity of capsule 00:00: mouth 3 [place] 00 (three) Medical times Branch daily with meals. indomethaci 2018-04- No [id number] 25mg Take 1 Univers n 25 mg 1-04 07-14 capsule by ity o f capsule 00:00: 00:00 mouth 3 [place] 00 :00 (three) Medical times Branch daily with meals. indomethaci 2018-04- No [id number] 25mg Take 1 Univers n 25 mg 1-04 07-14 capsule by ity o f capsule 00:00: 00:00 mouth 3 [place] 00 :00 (three) Medical times Branch daily with meals. tapentadol 2019-0 Yes 50mg Take 50 mg U nivers 50 mg 5-17 by mouth ity of tablet 15:45: daily. [address] gabapentin 2019-0 Yes 600mg Take 600 Un manuel enacarbil 5-17 mg by ity of (HORIZANT) 15:45: mouth [place] 600 [place] TbSR 17 (two) Medical times Branch daily. tapentadol 2019-0 Yes 50mg Take 50 mg U nivers 50 mg 5-17 by mouth ity of tablet 15:45: daily. [address] Branch gabapentin 2019-0 Yes 600mg Take 600 Un manuel enacarbil 5-17 mg by ity of (HORIZANT) 15:45: mouth 2 [place] 600 mg TbSR 17 (two) Medical times Branch daily. tapentadol 2019-0 Yes 50mg Take 50 mg U nivers 50 mg 5-17 by mouth ity of tablet 15:45: daily. [address] gabapentin 2019-0 Yes 600mg Take 600 Un manuel enacarbil 5-17 mg by ity of (HORIZANT) 15:45: mouth 2 [place] 600 mg TbSR 17 (two) Medical times Branch daily. tapentadol 2019-0 Yes 50mg Take 50 mg U nivers 50 mg 5-17 by mouth ity of tablet 15:45: daily. [address] gabapentin 2019-0 Yes 600mg Take 600 Un manuel enacarbil 5-17 mg by ity of (HORIZANT) 15:45: mouth 2 [place] 600 mg TbSR 17 (two) Medical times Branch daily. tapentadol 2019-0 Yes 50mg Take 50 mg U nivers 50 mg 5-17 by mouth ity of tablet 15:45: daily. [address] gabapentin 2019-0 Yes 600mg Take 600 Un manuel enacarbil 5-17 mg by ity of (HORIZANT) 15:45: mouth 2 [place] 600 mg TbSR 17 (two) Medical times Branch daily. tapentadol 2019-0 Yes 50mg Take 50 mg U nivers 50 mg 5-17 by mouth ity of tablet 15:45: daily. [address] gabapentin 2019-0 Yes 600mg Take 600 Un manuel enacarbil 5-17 mg by ity of (HORIZANT) 15:45: mouth 2 [place] 600 mg TbSR 17 (two) Medical times Branch daily. tapentadol 2019-0 Yes 50mg Take 50 mg U nivers 50 mg 5-17 by mouth ity of tablet 15:45: daily. [address] gabapentin 2019-0 Yes 600mg Take 600 Un manuel enacarbil 5-17 mg by ity of (HORIZANT) 15:45: mouth 2 [place] 600 mg TbSR 17 (two) Medical times Branch daily. tapentadol 2019-0 Yes 50mg Take 50 mg U nivers 50 mg 5-17 by mouth ity of tablet 15:45: daily. [address] gabapentin 2019-0 Yes 600mg Take 600 Un manuel enacarbil 5-17 mg by ity of (HORIZANT) 15:45: mouth 2 [place] 600 mg TbSR 17 (two) Medical times Branch daily. tapentadol 2019-0 Yes 50mg Take 50 mg U nivers 50 mg 5-17 by mouth ity of tablet 15:45: daily. [address] gabapentin 2019-0 Yes 600mg Take 600 Un manuel enacarbil 5-17 mg by ity of (HORIZANT) 15:45: mouth 2 [place] 600 mg TbSR 17 (two) Medical times Branch daily. tapentadol 2019-0 Yes 50mg Take 50 mg U nivers 50 mg 5-17 by mouth ity of tablet 15:45: daily. [address] gabapentin 2019-0 Yes 600mg Take 600 Un manuel enacarbil 5-17 mg by ity of (HORIZANT) 15:45: mouth 2 [place] 600 mg TbSR 17 (two) Medical times Branch daily. tapentadol 2019-0 Yes 50mg Take 50 mg U nivers 50 mg 5-17 by mouth ity of tablet 15:45: daily. [address] gabapentin 2019-0 Yes 600mg Take 600 Un manuel enacarbil 5-17 mg by ity of (HORIZANT) 15:45: mouth 2 [place] 600 mg TbSR 17 (two) Medical times Branch daily. tapentadol 2019-0 Yes 50mg Take 50 mg U nivers 50 mg 5-17 by mouth ity of tablet 15:45: daily. [address] gabapentin 2019-0 Yes 600mg Take 600 Un manuel enacarbil 5-17 mg by ity of (HORIZANT) 15:45: mouth 2 [place] 600 mg TbSR 17 (two) Medical times Branch daily. tapentadol 2019-0 Yes 50mg Take 50 mg U nivers 50 mg 5-17 by mouth ity of tablet 15:45: daily. [address] gabapentin 2019-0 Yes 600mg Take 600 Un manuel enacarbil 5-17 mg by ity of (HORIZANT) 15:45: mouth 2 [place] 600 mg TbSR 17 (two) Medical times Branch daily. tapentadol 2019-0 Yes 50mg Take 50 mg U nivers 50 mg 5-17 by mouth ity of tablet 15:45: daily. [address] gabapentin 2019-0 Yes 600mg Take 600 Un manuel enacarbil 5-17 mg by ity of (HORIZANT) 15:45: mouth 2 [place] 600 mg TbSR 17 (two) Medical times Branch daily. tapentadol 2019-0 Yes 50mg Take 50 mg U nivers 50 mg 5-17 by mouth ity of tablet 15:45: daily. [address] gabapentin 2019-0 Yes 600mg Take 600 Un manuel enacarbil 5-17 mg by ity of (HORIZANT) 15:45: mouth 2 [place] 600 mg TbSR 17 (two) Medical times Branch daily. tapentadol 2019-0 Yes 50mg Take 50 mg U nivers 50 mg 5-17 by mouth ity of tablet 15:45: daily. [address] gabapentin 2019-0 Yes 600mg Take 600 Un manuel enacarbil 5-17 mg by ity of (HORIZANT) 15:45: mouth 2 [place] 600 mg TbSR 17 (two) Medical times Branch daily. tapentadol 2019-0 Yes 50mg Take 50 mg U nivers 50 mg 5-17 by mouth ity of tablet 15:45: daily. [address] gabapentin 2019-0 Yes 600mg Take 600 Un manuel enacarbil 5-17 mg by ity of (HORIZANT) 15:45: mouth 2 [place] 600 mg TbSR 17 (two) Medical times Branch daily. tapentadol 2019-0 Yes 50mg Take 50 mg U nivers 50 mg 5-17 by mouth ity of tablet 15:45: daily. [address] gabapentin 2019-0 Yes 600mg Take 600 Un manuel enacarbil 5-17 mg by ity of (HORIZANT) 15:45: mouth 2 [place] 600 mg TbSR 17 (two) Medical times Branch daily. tapentadol 2019-0 Yes 50mg Take 50 mg U nivers 50 mg 5-17 by mouth ity of tablet 15:45: daily. [address] gabapentin 2019-0 Yes 600mg Take 600 Un manuel enacarbil 5-17 mg by ity of (H[place]IZANT) 15:45: mouth 2 [place] 600 mg TbSR 17 (two) Medical times Branch daily. tapentadol 2019-0 Yes 50mg Take 50 mg U nivers 50 mg 5-17 by mouth ity of tablet 15:45: daily. [address] gabapentin 2019-0 Yes 600mg Take 600 Un manuel enacarbil 5-17 mg by ity of (HORIZANT) 15:45: mouth 2 [place] 600 mg TbSR 17 (two) Medical times Branch daily. tapentadol 2019-0 Yes 50mg Take 50 mg U nivers 50 mg 5-17 by mouth ity of tablet 15:45: daily. [place] 17 Medical Branch gabapentin 2019-0 Yes 600mg Take 600 Un manuel enacarbil 5-17 mg by ity of (HORIZANT) 15:45: mouth 2 [place] 600 mg TbSR 17 (two) Medical times Branch daily. Metaxalone Metaxalone Yes Uni vers 400 MG Oral 400 MG Oral i ty of Tablet Tablet [place] [facility] Acetaminoph Acetaminoph Yes U nivers en-Codeine en-Codeine ity of #3 TABS #3 TABS [place] [facility] Immunizations Ordered Filled Immunization Date Status Comments [facility] e Immunization Name Name Influenza Virus 2019-03-18 Completed Universit y of Vaccine Quad .5 mL 00:00:00 [facility] 6+ MO Branch Influenza Virus 2019-03-18 Completed Universit y of Vaccine Quad .5 mL 00:00:00 [facility] 6+ MO Branch Influenza Virus 2019-03-18 Completed Universit y of Vaccine Quad .5 mL 00:00:00 [facility] 6+ MO Branch Influenza Virus 2019-03-18 Completed Universit y of Vaccine Quad .5 mL 00:00:00 [place] [facility] 6+ MO Branch Influenza Virus 2019-03-18 Completed Universit y of Vaccine Quad .5 mL 00:00:00 [facility] 6+ MO Branch Influenza Virus 2019-03-18 Completed Universit y of Vaccine Quad .5 mL 00:00:00 [facility] 6+ MO Branch Influenza Virus 2019-03-18 Completed Universit y of Vaccine Quad .5 mL 00:00:00 [place] [facility] 6+ MO Branch Influenza Virus 2019-03-18 Completed Universit y of Vaccine Quad .5 mL 00:00:00 [place] [facility] 6+ MO Branch Influenza Virus 2019-03-18 Completed Universit y of Vaccine Quad .5 mL 00:00:00 [place] [facility] 6+ MO Branch Influenza Virus 2019-03-18 Completed Universit y of Vaccine Quad .5 mL 00:00:00 [facility] 6+ MO Branch Influenza Virus 2019-03-18 Completed Universit y of Vaccine Quad .5 mL 00:00:00 [place] [facility] 6+ MO Branch Influenza Virus 2019-03-18 Completed Universit y of Vaccine Quad .5 mL 00:00:00 [facility] 6+ MO Branch Influenza Virus 2019-03-18 Completed Universit y of Vaccine Quad .5 mL 00:00:00 [place] [facility] 6+ MO Branch Influenza Virus 2019-03-18 Completed Universit y of Vaccine Quad .5 mL 00:00:00 [place] [facility] 6+ MO Branch Influenza Virus 2019-03-18 Completed Universit y of Vaccine Quad .5 mL 00:00:00 [place] [facility] IM 6+ MO Branch Influenza Virus 2019-03-18 Completed Universit y of Vaccine Quad .5 mL 00:00:00 [place] [facility] IM 6+ MO Branch Influenza Virus 2019-03-18 Completed Universit y of Vaccine Quad .5 mL 00:00:00 [place] [facility] IM 6+ MO Branch Influenza Virus 2019-03-18 Completed Universit y of Vaccine Quad .5 mL 00:00:00 [place] [facility] IM 6+ MO Branch Influenza Virus 2019-03-18 Completed Universit y of Vaccine Quad .5 mL 00:00:00 [place] [facility] 6+ MO Branch Influenza Virus 2019-03-18 Completed Universit y of Vaccine Quad .5 mL 00:00:00 [place] [facility] 6+ MO Branch Influenza Virus 2019-03-18 Completed Universit y of Vaccine Quad .5 mL 00:00:00 [place] [facility] 6+ MO Branch Influenza Virus 2019-03-18 Completed Universit y of Vaccine Quad .5 mL 00:00:00 [place] [facility] IM 6+ MO Branch Influenza Virus 2019-03-18 Completed Universit y of Vaccine Quad .5 mL 00:00:00 [place] [facility] 6+ MO Branch Influenza Virus 2019-03-18 Completed Universit y of Vaccine Quad .5 mL 00:00:00 [place] [facility] 6+ MO Branch Influenza Virus 2019-03-18 Completed Universit y of Vaccine Quad .5 mL 00:00:00 [facility] 6+ MO Branch Vital Signs Vital Name Observation Time Observation Value Comments Source Systolic blood 2020-11-08 133 mm[Hg] University of pressure 17:55:00 [facility] Diastolic blood 2020-11-08 71 mm[Hg] [place] o f pressure 17:55:00 [facility] Heart rate 2020-11-08 112 /min [facility] 17:55:00 [facility] Body height 2020-11-08 160 cm [facility] 17:55:00 [facility] Body weight 2020-11-08 92.987 kg [facility] 17:55:00 [facility] BMI 2020-11-08 36.31 kg/m2 University of 17:55:00 [facility] Systolic blood 2020-02-04 121 mm[Hg] University of pressure 15:57:00 [facility] Diastolic blood 2020-02-04 82 mm[Hg] University o f pressure 15:57:00 [facility] Heart rate 2020-02-04 84 /min University of 15:57:00 [facility] Body height 2020-02-04 160 cm University of 15:57:00 [facility] Body weight 2020-02-04 89.359 kg University of 15:57:00 [facility] BMI 2020-02-04 34.90 kg/m2 University of 15:57:00 [facility] Oxygen saturation 2020-02-04 97 /min [facility] in Arterial blood 15:57:00 [facility] [place] [facility] Pulse oximetry [place] Systolic blood 2019-06-28 122 mm[Hg] University of pressure 21:50:00 [facility] Diastolic blood 2019-06-28 74 mm[Hg] University o f pressure 21:50:00 [facility] Heart rate 2019-06-28 103 /min University of 21:50:00 [facility] Body temperature 2019-06-28 36.78 [place] University of 21:50:00 [facility] Respiratory rate 2019-06-28 16 /min University of 21:50:00 [facility] Body height 2019-06-28 160 cm University of 21:50:00 [facility] Body weight 2019-06-28 86.24 kg University of 21:50:00 [facility] BMI 2019-06-28 33.68 kg/m2 University of 21:50:00 [facility] Height 2018-07-15 63 [in_us] University of 00:00:00 [place] [facility] Weight 2018-07-15 198 [lb_av] University of 00:00:00 [place] [facility] Body Mass Index 2018-07-15 35.07 kg/m2 University o f Calculated 00:00:00 [place] [facility] BP Systolic 2018-06-10 129 mm[Hg] University of 16:03:00 [place] [facility] BP Diastolic 2018-06-10 84 mm[Hg] University of 16:03:00 [place] [facility] Height 2018-06-10 63 [in_us] University of 16:03:00 [place] [facility] Body Mass Index 2018-06-10 37.73 kg/m2 University o f Calculated 16:03:00 [place] [facility] Weight 2018-06-10 213 [lb_av] University 16:03:00 [place] [facility] Heart Rate 2018-06-10 112 /min University 16:03:00 [place] [facility] O2 SAT 2018-06-10 97 % University of 16:03:00 [place] [facility] Height 2018-06-10 63 [in_us] University of 14:41:00 [place] [facility] Body Mass Index 2018-06-10 37.73 kg/m2 University o f Calculated 14:41:00 [place] [facility] Weight 2018-06-10 213 [lb_av] University of 14:41:00 [place] [facility] Height 2018-05-29 63 [in_us] University of 10:13:00 [place] [facility] Weight 2018-05-29 213 [lb_av] University 10:13:00 [place] [facility] Body Mass Index 2018-05-29 37.73 kg/m2 University o f Calculated 10:13:00 [place] [facility] Height 2018-05-12 63 [in_us] University of 10:07:00 [place] [facility] Weight 2018-05-12 207 [lb_av] University of 10:07:00 [place] [facility] Body Mass Index 2018-05-12 36.67 kg/m2 University o f Calculated 10:07:00 [place] [facility] Height 2018-02-10 63 [in_us] University of 12:33:00 [place] [facility] Weight 2018-02-10 207 [lb_av] [place] of 12:33:00 [place] [facility] Body Mass Index 2018-02-10 36.67 kg/m2 University o f Calculated 12:33:00 [place] [facility] Height 2018-01-20 63 [in_us] University of 11:01:00 [place] [facility] Weight 2018-01-20 207 [lb_av] [place] of 11:01:00 [place] [facility] Body Mass Index 2018-01-20 36.67 kg/m2 University o f Calculated 11:01:00 [place] [facility] BP Systolic 2017-12-30 130 mm[Hg] Location: [facility] 09:28:00 [place] [facility] BP Diastolic 2017-12-30 77 mm[Hg] Location: [facility] 09:28:00 [place] [facility] Height 2017-12-30 63 [in_us] [place] of 09:28:00 [place] [facility] Weight 2017-12-30 207 [lb_av] [facility] 09:28:00 [place] [facility] Body Mass Index 2017-12-30 36.67 kg/m2 University o f Calculated 09:28:00 [place] [facility] Heart Rate 2017-12-30 79 /min [facility] 09:28:00 [place] [facility] Procedures Procedure Date / Time Performed Performing Clinician Jazmine werner ASSIGNMENT OF BENEFITS 2020-11-08 17:53:12 Doctor Unassigned, No [facility] Name Medical Branch MR Hip w contrast 2018-01-07 00:00:00 [facility] [id number] Physicians MR Hip w/wo contrast 2018-01-05 00:00:00 [facility] [id number] Physicians [U] XRAY HIP 2017-12-25 00:00:00 [facility] o f [place] UNILATERAL MIN 2 VWS Physicians RIGHT [id number] History of Sacroiliac [facility] joint fusion Physicians History of [place] o [facility] section Physicians Encounters Start End Encounter Admission Attending Care Care Encounter Source Date/Time Date/Time Type Type Clinicians Facility Department ID 2021-01-04 2021-01-04 [facility] 1.2.840.114 [id number] Univers 00:00:00 00:00:00 Ryan Cui [id number] ity [id number] [phone] Or dical nal 092 [facility] 2020-11-08 2020-11-[address] [facility] [place] [place] 1.2.840.114 [id number] Univers 12:53:51 13:08:51 Visit [facility] [id number] it y of [place] Cui [id number] [place] as Professio [phone] Or dical nal 044 [place] [facility] 2020-11-08 2020-11-08 Outpatient Lynda BERMUDEZ [facility] [id number] Univers 13:00:00 13:00:00 [facility] [id number] [facility] 2020-11-08 2020-11-08 Outpatient Lynda BERMUDEZ [facility] [id number] Univers 13:00:00 13:00:00 SARA [facility] 2020-11-08 2020-11-08 Orders Doctor ДМИТРИЙ 1.2.840.114 [id number] Univers 00:00:00 00:00:00 Only Unassigned, MIKE [id number] ity of [place] [facility] [id number] [place] as [phone] [address] 2020-11-06 2020-11-06 Outpatient R AIDAN, [facility] [id number] Univers 16:00:00 16:00:00 SARA [id number] ity of [facility] 2020-10-26 2020-10-26 [facility] 1.2.840.114 [id number] Univers 00:00:00 00:00:00 Ryan Cui [id number] ity [facility] [id number] [phone] [address] 2020-09-05 2020-09-05 Telephone [facility] 1.2.840.114 [id number] Univers 00:00:00 00:00:00 Ryan Cui [id number] ity [facility] [id number] [phone] [address] 2020-08-11 2020-08-11 Appointmen VIOLA BILL [facility] [id number] Univers 10:15:00 10:15:00 t; SARKIS [facility] sid BILL M.D. Tonica Buddy DOCKERY [facility], POD 3 2020-07-13 2020-07-13 [facility] 1.2.840.114 [id number] Univers 00:00:00 00:00:00 Outreach Nelsonjuice ROMEO [id number] [facility] [id number] [phone] [address] 2020-07-12 2020-07-12 Telephone [facility] 1.2.840.114 [id number] Univers 00:00:00 00:00:00 Ryan Cui [id number] ity of [id number] [phone] [address] 2020-05-19 2020-05-19 [place] [facility] 1.2.840.114 [id number] Univers 00:00:00 00:00:00 Ryan Cui [id number] ity of [place] [id number] [phone] [address] 2020-03-21 2020-03-21 [place] [facility] 1.2.840.114 [id number] Univers 00:00:00 00:00:00 Ryan Cui [id number] ity of [place] [id number] [phone] [address] 2020-03-15 2020-03-15 [place] [facility] 1.2.840.114 [id number] Univers 00:00:00 00:00:00 Ryan Cui [id number] ity of [place] [id number] [phone] [address] 2020-02-04 2020-02-04 [facility] 1.2.840.114 [id number] Univers 10:49:02 13:20:13 Visit Ryan Cui [id number] ity of [place] [id number] [phone] [address] 2020-02-04 2020-02-04 Outpatient RYAN BECKMAN [facility] [id number] Univers 10:40:00 10:40:00 [facility] [id number] [facility] 2020-02-04 2020-02-04 Outpatient RYAN BECKMAN [facility] [id number] Univers 10:40:00 10:40:00 [facility] 2019-12-13 2019-12-13 [place] [facility] 1.2.840.114 [id number] Univers 00:00:00 00:00:00 Ryan Cui [id number] ity [place] [id number] [phone] [address] 2019-11-17 2019-11-17 [facility] 1.2.840.114 [id number] Univers 00:00:00 00:00:00 Ryan Tana See [id number] ity [place] [id number] [phone] [address] 2019-11-09 2019-11-09 Outpatient VESLISAKA, [facility] [id number] Univers 13:15:00 13:15:00 SARA [id number] ity of [facility] 2019-11-01 2019-11-01 Outpatient R [facility] [id number] Univers 17:00:00 17:00:00 ity of [facility] 2019-11-01 2019-11-01 Outpatient R [facility] [id number] Univers 17:00:00 17:00:00 ity of [facility] 2019-10-21 2019-10-21 [facility] 1.2.840.114 [id number] Univers 00:00:00 00:00:00 Ryan Cui [id number] [id number] [phone] [address] 2019-10-13 2019-10-13 [facility] 1.2.840.114 [id number] Univers 00:00:00 00:00:00 Ryan Cui [id number] [id number] [phone] [address] 2019-09-10 2019-09-13 Office [facility] 1.2.840.114 [id number] Univers 10:27:48 09:48:13 Visit Ryan Cui [id number] it[id number] [phone] [place] [id number] [facility] 2019-09-10 2019-09-10 Outpatient Lynda RYAN HALL [facility] [id number] Univers 15:00:00 15:00:00 RYAN HALL [facility] 2019-09-10 2019-09-10 Outpatient Lynda ISABELRYAN [facility] [id number] Univers 09:20:00 09:20:00 RYAN HALL [id number] [facility] 2019-09-08 2019-09-08 Telephone Isabel [facility] 1.2.840.114 [id number] Univers 00:00:00 00:00:00 Ryan Cui [id number] ity [place] [id number] [phone] [address] 2019-08-18 2019-08-18 [facility]ill [facility] 1.2.840.114 [id number] Univers 00:00:00 00:00:00 Ryan Cui [id number] ity [place] [id number] [phone] [address] 2019-06-28 2019-06-28 Office Isabel [facility] 1.2.840.114 [id number] Univers 15:40:15 16:19:58 Visit Ryan Cui [id number] it[place] [id number] [phone] [address] 2019-06-28 2019-06-28 Outpatient RYAN BECKMAN [facility] [id number] Univers 15:40:00 15:40:00 RYAN HALL [id number] [facility] 2019-06-28 2019-06-28 Outpatient Lynda RYAN HALL [facility] [id number] Univers 15:40:00 15:40:00 RYAN HALL [facility] 2019-04-06 2019-04-06 Outpatient RYAN BECKMAN [facility] [id number] Univers 10:07:32 23:59:00 RYAN HALL [facility] 2018-07-15 2018-07-15 Appointmen [facility] HE[facility] SERVICES Orthopedics [id number] Univers 09:00:00 09:00:00 t; SARKIS at [facility] sid BILL M.D. [place] Tobi DOCKERY M.D. ans 2018-06-10 2018-06-10 Appointmen [facility] Orthopedics [id number] Univers 15:45:00 15:45:00 t; JAYY MENJIVAR at [facility] Winifred HOPE M.D. Physici ans 2018-06-10 2018-06-10 Appointadama [facility] Orthopedics 50 [id number] Univers 13:45:00 13:45:00 t; SARKIS at [facility] sid BILL M.D. [place] Tobi DOCKERY M.D. ans 2018-05-29 2018-05-29 Appointadama [facility] Orthopedics [id number] Univers 08:45:00 08:45:00 t; SARKIS at [facility] Winifred BILL [place] Tobi DOCKERY M.D. ans 2018-05-12 2018-05-12 [facility] [id number] Univers 09:30:00 09:30:00 t; Winifred GONZALEZ [facility] [place], Spine S [place] Dwayne GONZALEZ M.D. [place] ans 2018-02-10 2018-02-10 [facility] [id number] Univers 11:30:00 11:30:00 t; Winifred GONZALEZ [facility] [place] Spine S [place] Dwayne GONZALEZ M.D. [place] ans 2018-01-22 2018-01-22 [facility] [id number] Univers 07:00:00 07:00:00 t; Winifred GONZALEZ it y of [place] OLIVAREZ Physici M.D. ans 2018-01-20 2018-01-20 [facility] [place] [facility] [id number] Univers 11:00:00 11:00:00 t; Winifred GONZALEZ [facility] [place], Spine [facility] Dwayne GONZALEZ M.D. ans 2017-12-30 2017-12-30 Appointmen VIOLA OLIVAREZ [facility] [id number] Univers 09:30:00 09:30:00 t; Winifred GONZALEZ [facility] [place], Spine S [place] Dwayne GONZALEZ M.D. [place] ans Results Test Description Test Time Test Comments Results Result [facility] e Comments [U] XRAY HIP 2020-08-11 Images University o f UNILATERAL MIN 2 11:10:00 acquired, not [place] S RIGHT [id number] reported on Physicia ns this accession number. Pre Op [facility] 29 Survey 2018-05-11 10:16:43 Test Item Value Reference Range Interpretation Comme nts Pain Interference: (test code = Pain Interference:) 66.9 N Pain Intensity: (test code = Pain Intensity:) 57.5 N Physical Function: (test code = Physical Function:) 26.9 N Satisfaction Role: (test code = Satisfaction Role:) 28.5 N [facility] Hip w contrast [id number] 14:24:00MR RIGHT HIP ARTHROGRAMHISTORY: Right hip pain, greater trochanteric bursitis of right hip, primaryosteoarthritis of both hips, sacroiliac joint pain, tear of right acetabularlabrumCOMPARISON: None available.FINDINGS:OSSEOUS:1. No stress fracture or marrow edema is seen.2. No evidence of avascular necrosis.3. No bony abnormality of the femoral head-neck junction or the acetabulumassociated with femoroacetabular impingement.4. Changes of the right sacroiliac joint fusion are noted. Normal leftsacroiliac joint.LABRUM AND ARTICULAR5. Acetabular labrum is intact.6. Hip joint cartilage is normal.TENDONS7. Normal gluteus medius and minimus attachments on the greater trochanter.8. No hamstring tendon tear or detachment.MISCELLANEOUS9. No trochanteric or iliopsoas bursal fluid collection.10. No muscle edema or atrophy.11. A 1.4 x 1.6 cm uterine fundal fibroid is noted on coronal whole pelvisimaging.IMPRESSION:1. Normal right hip. No tear of the labrum.2. Changes of right sacroiliac joint effusion.3. Small uterine fibroid.Thank you for referring your patient to [facility] and [facility].SL: [id number] by: Michael Torrez MDDictated Date/time: 01/08/18 15:41Electronically Signed by: Michael Torrez MD 01/08/1815:47FINAL REPORTUnAshley Regional Medical CenterDX Inj Arthrogram Shoulder Unilat [id number] 13:52:00RIGHT HIP ARTHROGRAM FOR MR ARTHROGRAPHYHISTORY: - pain in right hip, sacroiliac joint pain, primary osteoarthritis ofboth hips; COMPARISON: None available.FLUORO TIME: 31 secondsTECHNIQUE AND FINDINGS:The right hip was prepped and draped in a sterile fashion. Several cc of 1%lidocaine was used to achieve local anesthesia. Under fluoroscopic guidance, a22 gauge spinal needle was inserted into the joint space. The joint space wasinjected with a combination of Omnipaque, gadolinium, and normal saline using atotal of 11 cc. The patient tolerated the procedure well and was taken to theMR suite for further imaging.SL: [id number] by: Michael Torrez MDDictated Date/time: 01/08/18 15:08Electronically Signed by: Michael Torrez MD 01/08/1815:10FINAL REPORTUnSan Juan Hospital Physicians[U] XRAY HIP UNILATERAL MIN 2 VWS RIGHT [id number] 07:57:00Images acquired, not reported on this accession number.[facility]
--- NOTE | 2021-06-28 20:43 | RAD REPORT ---
EXAM DESCRIPTION: RAD - Hip Right 2 View - 06/28/2021 8:25 pm CLINICAL HISTORY: PAIN COMPARISON: No comparisons FINDINGS: AP and frog-leg views of the right hip were obtained. There is no fracture or dislocation. No AVN or focal head abnormality. No acute or destructive bony p rocess seen. Right SI joint surgical fixation hardware in place. Right-side neurostimulator battery p ack place. IMPRESSION: Negative right hip examination for acute or significant findings.
--- NOTE | 2021-06-28 20:44 | RAD REPORT ---
EXAM DESCRIPTION: RAD - Pelvis - 06/28/2021 8:25 pm CLINICAL HISTORY: right hip pain COMPARISON: <Comparisons> TECHNIQUE: AP imaging of the pelvis was obtained. FINDINGS: No fracture of the bony pelvis. Surgical hardware traverses the right SI joint. No acute s acral ala finding. No acute hip joint finding. No femoral head abnormality. Neurostimulator battery p ack overlies the lateral iliac crest. IMPRESSION: Negative pelvis for acute or suspicious finding.
[2021-06-28 20:52] LABS: Urine Blood Negative (Negative); Urine Glucose Negative (Negative); Urine Protein Negative (Negative); Urine Specific Gravity 1.015 (1.005-1.030)
--- NOTE | 2021-06-28 20:53 | ER ---
Nurse's Notes [facility] Name: Fouzia Lamas Age: 40 yrs Sex: Female : 1980 Arrival Date: 06/28/2021 Time: 17:39 Bed 6 Private MD: Diagnosis: Pain in right hip Presentation: 06/28 17:45 Chief complaint: Patient states: R hip pain for 3-4 days. Pain radiates down R leg. No ll1 trauma or falls. Coronavirus screen: Vaccine status: Patient reports being unvaccinated. Client denies travel out of the [place] in the last 14 days. At this time, the client does not indicate any symptoms associated with coronavirus-19. Ebola Screen: Patient denies travel to an Ebola-affected area in the 21 days before illness onset. Initial Sepsis Screen: Does the patient meet any 2 criteria? No. Patient's initial sepsis screen is negative. Does the patient have a suspected source of infection? Yes: Bone or joint infection. Risk Assessment: Do you want to hurt yourself or someone else? Patient reports no desire to harm self or others. Onset of symptoms was June 25, 2021. 17:45 Method Of Arrival: Wheelchair ll1 17:45 Acuity: DOLLY 4 ll1 Triage Assessment: 19:49 General: Appears in no apparent distress. Behavior is calm, cooperative, appropriate ph for age. Neuro: No deficits noted. Cardiovascular: No deficits noted. Historical: - Allergies: 17:46 No Known Drug Allergies; ll1 - PMHx: 17:46 bone spur/back problems; ll1 - PSHx: 17:46 spinal cord stimulator; ll1 - Immunization history:: Client reports having NOT received the Covid vaccine. Flu vaccine is not up to date. - Social history:: Smoking status: Patient reports the use of cigarette tobacco products, smokes one-half pack cigarettes per day. Screenin:48 Abuse screen: Denies threats or abuse. Denies injuries from another. Nutritional ph screening: No deficits noted. Tuberculosis screening: No symptoms or risk factors identified. Fall Risk None identified. Assessment: 19:46 Pain: Complains of pain in right hip Pain radiates to right leg. Neuro: Level of ph Consciousness is awake, alert, obeys commands, Oriented to person, place, time, situation. 21:17 Reassessment: Patient appears in no apparent distress at this time. General: Appears in tw5 no apparent distress. 21:17 Pain: Pain currently is 8 out of 10 on a pain scale. tw5 Vital Signs: 17:45 BP 130 / 92; Pulse 118; Resp 18; Temp 98.2; Pulse Ox 96% ; Weight 97.07 kg; Height 5 ll1 ft. 3 in. (160.02 cm); Pain 8/10; 19:49 BP 123 / 98; Pulse 82; Resp 16; Pulse Ox 100% on R/A; ph 21:17 BP 129 / 73; Pulse 97; Pulse Ox 97% on R/A; tw5 21:24 Pain 7/10; tw5 17:45 Body Mass Index 37.91 (97.07 kg, 160.02 cm) ll1 ED Course: 17:39 Patient arrived in ED. ds1 17:46 Triage completed. ll1 17:47 Arm band placed on. ll1 19:26 Ashok Winn PA is PHCP. cp 19:26 Yvette Khan MD is Attending Physician. cp 19:35 Eden Sosa RN is Primary Nurse. ph 19:48 Patient has correct armband on for positive identification. Bed in low position. Call ph light in reach. Side rails up X2. 20:25 XRAY Hip RIGHT 2 view In Process Unspecified. EDMS 20:25 XRAY Pelvis In Process Unspecified. EDMS 21:05 Urine --Ancillary Sent. cs9 21:05 Urine --Ancillary (enter results) Sent. cs9 21:17 No provider procedures requiring assistance completed. Patient did not have IV access tw5 during this emergency room visit. Administered Medications: 21:11 Drug: Ketorolac 60 mg Route: IM; Site: left ventrogluteal; tw5 21:25 Follow up: Response: Pain is decreased tw5 21:11 Drug: morphine 10 mg Route: IM; Site: left ventrogluteal; tw5 21:24 Follow up: Pain 7/10 Adult; Response: No adverse reaction; Pain is decreased tw5 Outcome: 20:53 Discharge ordered by . cp 21:25 Patient left the ED. tw5 Signatures: Dispatcher [employer] EDElena Archibald ds1 Eden Sosa RN RN Page, SRINIVASA Pulido cp, Lynsay, RN RN ll1 Carolin Farfan tw5 [place], Yina 9
--- NOTE | 2021-06-28 20:53 | EDPHYS ---
Physician Documentation [facility] Name: Fouzia Lamas Age: 40 yrs Sex: Female : 1980 Arrival Date: 06/28/2021 Time: 17:39 Bed 6 Private MD: ED Physician Yvette Khan HPI: 06/28 19:45 This 40 yrs old Female presents to ER via Wheelchair with complaints of Hip Pain. cp 19:45 The patient or guardian reports pain. sustained from unknown reason, There is no cp obvious deformity, The patient is able to self ambulate. The patient is able to bear partial body weight. The patient's discomfort radiates to the down back of right leg. The complaints affect the right hip. Onset: The symptoms/episode began/occurred 4 day(s) ago. Associated signs and symptoms: Pertinent negatives: abdominal pain, dysuria, incontinence, numbness. Historical: - Allergies: 17:46 No Known Drug Allergies; ll1 - PMHx: 17:46 bone spur/back problems; ll1 - PSHx: 17:46 spinal cord stimulator; ll1 - Immunization history:: Client reports having NOT received the Covid vaccine. Flu vaccine is not up to date. - Social history:: Smoking status: Patient reports the use of cigarette tobacco products, smokes one-half pack cigarettes per day. ROS: 19:50 Constitutional: Negative for body aches, chills, fever, poor PO intake. cp 19:50 Eyes: Negative for injury, pain, redness, and discharge. cp 19:50 Neck: Negative for pain with movement, pain at rest, stiffness. 19:50 Cardiovascular: Negative for chest pain. 19:50 Respiratory: Negative for cough, shortness of breath, wheezing. 19:50 Abdomen/GI: Negative for abdominal pain, nausea, vomiting, and diarrhea, constipation. 19:50 MS/extremity: Positive for pain, tenderness, of the right hip, Negative for injury or acute deformity, decreased range of motion, paresthesias. 19:50 Skin: Negative for cellulitis, rash. 19:50 Neuro: Negative for altered mental status, headache, numbness, weakness. 19:50 All other systems are negative. Exam: 20:00 Constitutional: The patient appears in no acute distress, alert, awake, non-toxic, well cp developed, well nourished, uncomfortable, overweight 20:00 Head/Face: Normocephalic, atraumatic. cp 20:00 Chest/axilla: Inspection: normal. 20:00 Cardiovascular: Rate: normal. 20:00 Respiratory: the patient does not display signs of respiratory distress, Respirations: normal, no use of accessory muscles, no retractions, labored breathing, is not present. 20:00 Abdomen/GI: Inspection: abdomen appears normal, Palpation: abdomen is soft and non-tender, in all quadrants. 20:00 Back: pain, that is severe, of the right low back. 20:00 Musculoskeletal/extremity: Extremities: grossly normal except: noted in the right hip: pain, ROM: limited passive range of motion due to pain, in the right hip, Perfusion: the extremity is normally perfused throughout, the right leg Sensation intact. Vital Signs: 17:45 BP 130 / 92; Pulse 118; Resp 18; Temp 98.2; Pulse Ox 96% ; Weight 97.07 kg; Height 5 ll1 ft. 3 in. (160.02 cm); Pain 8/10; 19:49 BP 123 / 98; Pulse 82; Resp 16; Pulse Ox 100% on R/A; ph 21:17 BP 129 / 73; Pulse 97; Pulse Ox 97% on R/A; tw5 21:24 Pain 7/10; tw5 17:45 Body Mass Index 37.91 (97.07 kg, 160.02 cm) ll1 MDM: 19:27 Patient medically screened. cp 20:52 Data reviewed: vital signs, nurses notes, radiologic studies, plain films. 06/28 20:52 Order name: Urine Dipstick-Ancillary EDMA 06/28 20:53 Order name: Urine --Ancillary (enter results) cs9 06/28 19:36 Order name: XRAY Pelvis; Complete Time: 20:47 cp 06/28 20:47 Interpretation: Report reviewed. 06/28 19:36 Order name: XRAY Hip RIGHT 2 view; Complete Time: 20:47 cp 06/28 20:54 Order name: Urine --Ancillary EDMA 06/28 19:36 Order name: Urine Dipstick-Ancillary (obtain specimen); Complete Time: 20:53 cp 06/28 19:36 Order name: Urine Test (obtain specimen); Complete Time: 20:53 cp 06/28 20:52 Order name: Crutches; Complete Time: 21:19 cp Administered Medications: 21:11 Drug: Ketorolac 60 mg Route: IM; Site: left ventrogluteal; tw5 21:25 Follow up: Response: Pain is decreased tw5 21:11 Drug: morphine 10 mg Route: IM; Site: left ventrogluteal; tw5 21:24 Follow up: Pain 7/10 Adult; Response: No adverse reaction; Pain is decreased tw Disposition Summary: 06/28/21 20:53 Discharge Ordered Location: Home cp Problem: new cp Symptoms: have improved cp Condition: Stable cp Diagnosis - Pain in right hip cp Followup: cp - With: Private Physician - When: 2 - 3 days - Reason: Recheck today's complaints Discharge Instructions: - Discharge Summary Sheet cp - Hip Pain cp Forms: - Medication Reconciliation Form cp - Thank You Letter cp - Antibiotic Education cp - Prescription Opioid Use cp - Work release form Prescriptions: - Cyclobenzaprine 10 mg Oral Tablet - take 1 tablet by ORAL route every 8 hours As needed; 30 tablet; Refills: 0, cp Product Selection Permitted - Diclofenac Sodium 75 mg Oral Tablet Sustained Release - take 1 tablet by ORAL route 2 times per day; 30 tablet; Refills: 0, Product cp Selection Permitted - Lidoderm 5 % Topical adhesive patch,medicated - apply 1 patch by TOPICAL route once daily; 1 box; Refills: 0, Product Selection cp Permitted Signatures: Dispatcher [employer] Eden Marquez RN RN ph Page, Corey, PA PA cp Lewis, Lynsay, RN RN 1 Carolin Farfan tw5
[2021-06-28] MEDS ORDERED: KETOROLAC 30 MG/ML INJ ONE (21:05)
[2021-06-28] MEDS ORDERED: MORPHINE 4 MG/ML SYR ONE (21:05)
[2021-06-28 21:22] LABS: Urine Specific Gravity/Preg 1.015 (1.005-1.030)
[2021-06-28 22:39] VITALS: TEMP 98.2
[2021-06-28 22:41] VITALS: BP 129/73; O2SAT 97
== END 2021-06-28 21:25 | disposition home or self-care (01) ==
LOC: ER 17:37
DX: M25.551 Pain in right hip (principal); F17.210 Nicotine dependence, cigarettes, uncomplicated
CPT/HCPCS: 72170; 81003; 81025; 96372; 99283